=== PATIENT | male | born 1955 | race Caucasian/White ===

== ENCOUNTER 2018-07-29 12:54 | Emergency (ER) | payer MEDICARE, OTHER ==
--- NOTE | 2018-07-29 13:13 | EDM.PDOC ---
ED HPI GENERAL MEDICAL PROBLEM - General Stated Complaint: KEEPS PUKING,POOPING,AND HAS A FEVER Time Seen by Provider: 07/29/18 13:05 Source of Information: Reports: Patient History Limitations: Reports: No Limitations - History of Present Illness INITIAL COMMENTS - FREE TEXT/NARRATIVE: Eugene comes emergency department today with complaints of sudden onset around midnight last night of nausea vomiting and diarrhea. The patient ate a donut from [employer] about 9 PM last night. About midnight he suddenly was overcome with subjective fever and chills. He did not check his temperature. He then started to vomit continuously and have diarrhea. He continues to have diarrhea but is vomiting is improved. He reports a fever but he did not check his temperature. No body aches. He does complain of malaise and fatigue. He has no cough or congestion. No shortness of breath or difficulty breathing. No abdominal pain. No syncope or palpitations. No chest pain. No headache. No sore throat. - Related Data Allergies Allergy/AdvReac Type Severity Reaction Status Date / Time No Known Allergies Allergy Verified 07/29/18 13:11 Home Meds: Home Meds Citalopram [Citalopram HBr] 20 mg PO DAILY 07/29/18 [History] Losartan/Hydrochlorothiazide [Losartan-HCTZ 100-12.5 MG] 1 tab PO DAILY [History] ED ROS GENERAL - Review of Systems Review Of Systems: ROS reveals no pertinent complaints other than HPI. ED EXAM, GI/ABD - Physical Exam Exam: See Below Exam Limited By: No Limitations General Appearance: Alert, WD/WN Eyes: Bilateral: Normal Appearance Ears: Normal External Exam, Normal TMs Nose: Normal Inspection, Normal Mucosa Throat/Mouth: Normal Lips, Normal Teeth, Normal Oropharynx. No: Normal Inspection (Oral mucosa is quite dry. Otherwise free of pathology.) Head: Atraumatic, Normocephalic Neck: Normal Inspection, Supple Respiratory/Chest: No Respiratory Distress, Lungs Clear, Normal Breath Sounds, No Accessory Muscle Use Cardiovascular: Normal Peripheral Pulses, Regular Rate, Rhythm GI/Abdominal Exam: Normal Bowel Sounds, Soft, Tender (Very mild generalized tenderness throughout the abdomen without rebound or guarding. Bowel sounds are diminished.). No: Distended, Hernia, Mass Back Exam: Normal Inspection. No: CVA Tenderness (L), CVA Tenderness (R) Extremities: Normal Inspection, Normal Range of Motion, Non-Tender Neurological: Alert, Oriented, Normal Cognition, No Motor/Sensory Deficits Psychiatric: Normal Affect Skin Exam: Dry, Intact, Cool, Pallor Lymphatic: No Adenopathy Course - Vital Signs Last Recorded V/S: Last Vital Signs Temp 36.1 C 07/29/18 13:00 Pulse 69 07/29/18 13:00 Resp 16 07/29/18 13:00 BP 158/79 H 07/29/18 13:00 Pulse Ox 96 07/29/18 13:00 - Orders/Labs/Meds Orders: Active Orders 24 hr Category Date Time Status Peripheral IV Care [RC] . DIRECTED Care 07/29/18 13:03 Active Lactated Ringers [Ringers, Lactated] 1,000 ml Med 07/29/18 14:07 Active IV .BOLUS Sodium Chloride 0.9% [Saline Flush] Med 07/29/18 13:03 Active 10 ml FLUSH ASDIRECTED PRN Peripheral IV Insertion Adult [OM.PC] Stat Oth 07/29/18 13:03 Ordered Medication Orders Lactated Ringer's (Ringers, Lactated) 1,000 mls @ 500 mls/hr IV .BOLUS ONE Stop: 07/29/18 16:06 Last Admin: 07/29/18 14:16 Dose: 500 mls/hr Sodium Chloride (Saline Flush) 10 ml FLUSH ASDIRECTED PRN PRN Reason: Keep Vein Open Last Admin: 07/29/18 13:17 Dose: 10 ml Labs: Laboratory Tests 07/29/18 07/29/18 07/29/18 Range/Units 13:08 13:08 13:08 WBC 16.0 H (5.0-10.0) 10^3/uL RBC 6.09 (4.6-6.2) 10^6/uL Hgb 18.4 H (14.0-18.0) g/dL Hct 52.6 (40.0-54.0) % MCV 86.4 (80-100) fL MCH 30.2 (27.0-34.0) pg MCHC 35.0 (33.0-35.0) g/dL Plt Count 205 (150-450) 10^3/uL Neut % (Auto) 88.1 H (42.2-75.2) % Lymph % (Auto) 6.8 L (20.5-50.1) % Crawford % (Auto) 4.9 (2-8) % Eos % (Auto) 0.0 L (1.0-3.0) % Baso % (Auto) 0.2 (0.0-1.0) % Sodium 136 (135-145) mmol/L Potassium 3.4 L (3.6-5.0) mmol/L Chloride 98 L (101-111) mmol/L Carbon Dioxide 26.0 (21.0-31.0) mmol/L Anion Gap 15.4 BUN 19 H (7-18) mg/dL Creatinine 1.0 (0.6-1.3) mg/dL Est Cr Clr Drug Dosing 81.91 mL/min Estimated GFR (MDRD) > 60 BUN/Creatinine Ratio 19.00 Glucose 155 H (74-105) mg/dL Lactic Acid (0.5-2.2) mmol/L Calcium 9.0 (8.4-10.2) mg/dl Total Bilirubin 1.2 H (0.2-1.0) mg/dL AST 25 (10-42) IU/L ALT 16 (10-60) IU/L Alkaline Phosphatase 82 (42-121) IU/L C-Reactive Protein 0.6 (0.0-1.3) mg/dL Total Protein 7.8 (6.7-8.2) g/dl Albumin 4.5 (3.2-5.5) g/dl Globulin 3.3 Albumin/Globulin Ratio 1.36 /11/11 Range/Units 13:27 WBC (5.0-10.0) 10^3/uL RBC (4.6-6.2) 10^6/uL Hgb (14.0-18.0) g/dL Hct (40.0-54.0) % MCV (80-100) fL MCH (27.0-34.0) pg MCHC (33.0-35.0) g/dL Plt Count (150-450) 10^3/uL Neut % (Auto) (42.2-75.2) % Lymph % (Auto) (20.5-50.1) % Crawford % (Auto) (2-8) % Eos % (Auto) (1.0-3.0) % Baso % (Auto) (0.0-1.0) % Sodium (135-145) mmol/L Potassium (3.6-5.0) mmol/L Chloride (101-111) mmol/L Carbon Dioxide (21.0-31.0) mmol/L Anion Gap BUN (7-18) mg/dL Creatinine (0.6-1.3) mg/dL Est Cr Clr Drug Dosing mL/min Estimated GFR (MDRD) BUN/Creatinine Ratio Glucose (74-105) mg/dL Lactic Acid 1.9 (0.5-2.2) mmol/L Calcium (8.4-10.2) mg/dl Total Bilirubin (0.2-1.0) mg/dL AST (10-42) IU/L ALT (10-60) IU/L Alkaline Phosphatase (42-121) IU/L C-Reactive Protein (0.0-1.3) mg/dL Total Protein (6.7-8.2) g/dl Albumin (3.2-5.5) g/dl Globulin Albumin/Globulin Ratio Meds: Medications Generic Name Dose Route Start Last Admin Trade Name Freq PRN Reason Stop Dose Admin Lactated Ringer's 1,000 mls @ 500 mls/hr 07/29/18 14:07 07/29/18 14:16 Ringers, Lactated IV 07/29/18 16:06 500 mls/hr .BOLUS ONE Administration Sodium Chloride 10 ml 07/29/18 13:03 07/29/18 13:17 Saline Flush FLUSH 10 ml ASDIRECTED PRN Administration Keep Vein Open Discontinued Medications Generic Name Dose Route Start Last Admin Trade Name Freq PRN Reason Stop Dose Admin Lactated Ringer's 1,000 mls @ 1,000 mls/hr 07/29/18 13:04 07/29/18 13:17 Ringers, Lactated IV 07/29/18 14:03 1,000 mls/hr .BOLUS ONE Administration Ondansetron HCl 4 mg 07/29/18 13:09 07/29/18 13:17 Zofran IV 07/29/18 13:10 4 mg ONETIME ONE Administration - Re-Assessments/Exams Free Text/Narrative Re-Assessment/Exam: 07/29/18 15:45 Patient was given IV fluid hydration while in the emergency department. He received 1-1/2 L of fluid. He felt much better He really feels back to normal. He was able to urinate a rather large amount. Repeatedly abdominal examination shows a soft nontender nondistended abdomen. With normal bowel sounds. This is really the presentation of either food poisoning and/or viral gastroenteritis. We will send him home with rehydration instructions as well as Zofran. Try not to use any treatments for the diarrhea he has not had any diarrhea while in the emergency department. It is important for this to let it run its course. He is comfortable with this plan and his questions answered period. Departure - Departure Time of Disposition: 15:31 Disposition: Home, Self-Care 01 Clinical Impression: Gastroenteritis, Dehydration - Discharge Information Instructions: Viral Gastroenteritis, Adult, [id number], Dehydration, Adult, [id number] Additional Instructions: Increase fluids over the next few days especially Gatorade and or Powerade. Make sure and eat a banana a day. No dairy products until your symptoms resolve. Zofran, 1 tablet every 6 hrs as needed for nausea and vomiting. RX given to he patient #12. Slowly advance your diet as tolerated. Return to the ED if new or worsening symptoms. Follow up with PCP in the next 4-6 days if not improving sooner if worse. - My Orders Last 24 Hours: My Active Orders 07/29/18 13:03 Peripheral IV Care [RC] . DIRECTED Sodium Chloride 0.9% [Saline Flush] 10 ml FLUSH ASDIRECTED PRN Peripheral IV Insertion Adult [OM.PC] Stat 07/29/18 14:07 Lactated Ringers [Ringers, Lactated] 1,000 ml IV .BOLUS - Assessment/Plan Last 24 Hours: My Active Orders 07/29/18 13:03 Peripheral IV Care [RC] . DIRECTED Sodium Chloride 0.9% [Saline Flush] 10 ml FLUSH ASDIRECTED PRN Peripheral IV Insertion Adult [OM.PC] Stat 07/29/18 14:07 Lactated Ringers [Ringers, Lactated] 1,000 ml IV .BOLUS Assessment:: gastroenteritis, viral vs food Dehydration. Plan: Increase fluids over the next few days especially Gatorade and or Powerade. Make sure and eat a banana a day. No dairy products until your symptoms resolve. Zofran, 1 tablet every 6 hrs as needed for nausea and vomiting. RX given to he patient #12. Slowly advance your diet as tolerated. Return to the ED if new or worsening symptoms. Follow up with PCP in the next 4-6 days if not improving sooner if worse.
[2018-07-29] MEDS: Sodium Chloride 0.9% 10 ML Syringe FLUSH PRN (13:17)
[2018-07-29] MEDS: Lactated Ringers 1,000 ML IV ONE ×2 (13:17→14:16)
[2018-07-29] MEDS: Ondansetron 4 MG/2 ML SDV IV ONE (13:17)
[2018-07-29 13:36] LABS: ANION GAP 15.4; CHLORIDE,CL 98 mmol/L (101-111); SODIUM,NA 136 mmol/L (135-145)
== END 2018-07-29 16:14 | disposition home or self-care (01) ==
LOC: DL.ED 12:54
DX: K52.9 Noninfective gastroenteritis and colitis, unspecified (principal); Z79.899 Other long term (current) drug therapy
CPT/HCPCS: 36415; 80053; 83605; 85025; 86140; 87804; 96361; 96374; 99284; J2405; J7120